=== PATIENT | male | born 1955 | race Caucasian/White ===

== ENCOUNTER 2017-09-14 20:44 | Observation (INO) | payer OTHER ==
--- NOTE | 2017-09-14 20:56 | PDOC ---
Rapid Medical Evaluation Chief Complaint: Blood Sugar Problem Time Seen by Provider: 09/14/17 20:50 Medical Evaluation: Allergies Allergy/AdvReac Type Severity Reaction Status Date / Time No Known Allergies Allergy Verified 10/06/14 14:25 "i was working outside and my sugar dropped. " patient report that he ate a lollipop now feels weak and lightheaded. O: patient alert ox3 CN intact, breath sounds clear. A: blood sugar problem P: cbc, cmp, cardiac , ekg, finger stick blood sugar. Discharge Disposition - Referrals Referrals: Cleve Zhang MD [Primary Care Provider] - - Patient Instructions - Post Discharge Activity
[2017-09-14 21:02] VITALS: BMI 30.7
[2017-09-14] MEDS ORDERED: ONDANSETRON 4 MG/2 ML VIAL IVPUSH STA (21:41)
--- NOTE | 2017-09-14 21:41 | PDOC ---
History of Present Illness - General History Source: Patient Exam Limitations: No Limitations - History of Present Illness Initial Comments: 09/14/17 22:38 The patient is a 62 year old male, with a significant past medical history of diabetes, who presents to the emergency department with, weakness, dizziness, and generalized chest discomfort. As per patient, he woke up at 11am when his symptoms onset. He reports that he felt as if his blood sugar was low. He reports that his symptoms continued despite his blood glucose reading stabilizing. He denies any recent fevers or chills. He denies any recent vomit, diarrhea or constipation. He denies any recent shortness of breath. He denies any recent dysuria, frequency, urgency or hematuria. Allergies: NKA Past surgical history: None reported. Social History: Nonsmoker. Denies EtOH use and recreational drug use. Primary Care Physician: Dr. Zhang <Veronica Neumann - Last Filed: 09/14/17 23:07> - General History Source: Patient <Chris Membreno - Last Filed: 09/19/17 19:36> - General Chief Complaint: Blood Sugar Problem Stated Complaint: DIZZINESS,WEAKNESS Time Seen by Provider: 09/14/17 20:50 Past History <Veronica Neumann - Last Filed: 09/14/17 23:07> - Past Medical History COPD: No Diabetes: Yes HTN: Yes Hypercholesterolemia: Yes Kidney Stones: Yes - Immunization History Immunization Up to Date: Yes - Suicide/Smoking/Psychosocial Hx Smoking Status: No Smoking History: Never smoked Have you smoked in the past 12 months: No Number of Cigarettes Smoked Daily: 0 Information on smoking cessation initiated: No Hx Alcohol Use: Yes Drug/Substance Use Hx: No Substance Use Type: Alcohol Hx Substance Use Treatment: No <Chris Membreno - Last Filed: 09/19/17 19:36> - Past Medical History Allergies/Adverse Reactions: Allergies Allergy/AdvReac Type Severity Reaction Status Date / Time No Known Allergies Allergy Verified 10/06/14 14:25 Home Medications: Ambulatory Orders Aspirin 81 mg PO DAILY 09/14/17 Review of Systems - Review of Systems Able to Perform ROS?: Yes Comments:: 09/14/17 22:38 CONSTITUTIONAL: Present: Weakness Absent: fever, no chills EYES: Absent: visual changes ENT: Absent: ear pain, no sore throat CARDIOVASCULAR: Present: Chest discomfort. Absent: no palpitations RESPIRATORY: Absent: cough, no SOB GI: Present: Nausea Absent: abdominal pain, no vomiting, no constipation, no diarrhea GENITOURINARY: Absent: dysuria, no frequency, no hematuria MUSKULOSKELETAL: Absent: back pain, no arthralgia, no myalgia SKIN: Absent: rash NEURO: Present: Dizziness Absent: headache <Veronica Neumann - Last Filed: 09/14/17 23:07> *Physical Exam - Vital Signs Last Vital Signs Temp Pulse Resp BP Pulse Ox 97.9 F 74 18 111/62 100 09/14/17 20:53 09/14/17 20:53 09/14/17 20:53 09/14/17 20:53 09/14/17 20:53 - Physical Exam Comments: 09/14/17 22:40 GENERAL: Well-appearing, well-nourished. No apparent distress. HEENT: Normocephalic, atraumatic. PERRL, EOM intact. CARDIOVASCULAR: Normal S1, S2. Regular rate and rhythm. PULMONARY: Clear to auscultation bilaterally. ABDOMEN: Soft, non-distended, non-tender. EXTREMITIES: Normal ROM in all four extremities. No gross deformities. SKIN: Warm, dry. No rash NEUROLOGICAL: No focal neurological deficits. <Veronica Neumann - Last Filed: 09/14/17 23:07> - Vital Signs Last Vital Signs Temp Pulse Resp BP Pulse Ox 97.9 F 74 18 111/62 100 09/14/17 20:53 09/14/17 20:53 09/14/17 20:53 09/14/17 20:53 09/14/17 20:53 <Chris Membreno - Last Filed: 09/19/17 19:36> ED Treatment Course - LABORATORY CBC & Chemistry Diagram: 09/14/17 21:33 09/14/17 21:33 - ADDITIONAL ORDERS Additional order review: Laboratory Results 09/14/17 09/14/17 09/14/17 21:33 21:33 21:33 PT with INR 11.50 INR 1.02 PTT (Actin FS) 25.1 L Sodium 134 L Potassium 5.7 H Chloride 105 Carbon Dioxide 21 D Anion Gap 8 BUN 38 H D Creatinine 2.5 H D Creat Clearance w eGFR 26.13 Random Glucose 133 H D Calcium 9.4 Total Bilirubin 0.8 D AST 12 L ALT 30 Alkaline Phosphatase 90 Creatine Kinase 182 Troponin I < 0.02 Total Protein 7.9 Albumin 4.3 D 09/14/17 21:33 RBC 4.65 MCV 93.9 MCHC 33.7 RDW 13.7 MPV 8.3 Neutrophils % 76.3 Lymphocytes % 15.3 Monocytes % 8.1 Eosinophils % 0.1 Basophils % 0.2 - Medications Given in the ED: ED Medications Discontinued Medications Generic Name Dose Route Start Last Admin Trade Name Freq PRN Reason Stop Dose Admin Ondansetron HCl 4 mg 09/14/17 21:41 09/14/17 22:14 Zofran Injection IVPUSH 09/14/17 21:42 4 mg ONCE STA Administration <Veronica Neumann - Last Filed: 09/14/17 23:07> - LABORATORY CBC & Chemistry Diagram: 09/15/17 05:40 09/16/17 05:00 <Chris Membreno - Last Filed: 09/19/17 19:36> Medical Decision Making - Medical Decision Making 09/14/17 23:07 EKG performed at: 14 Sep 2017 at 21:32:51 Vent Rate 60 bpm OR interval 148 ms QRS duration 94 ms QT/QTc 398/398 ms P-R-T axes 28 -19 21 Normal sinus rhythm. Moderate voltage criteria for LVH, may be normal variant Borderline ECG When compared with ECG 06-Oct-2014 17:31, No significant change was found. <Veronica Neumann - Last Filed: 09/14/17 23:07> - Medical Decision Making 09/19/17 19:36 Dr. Membreno: The scribe's documentation has been prepared under my direction and personally reviewed by me in its entirery. I confirm that the note above accurately reflects all work, treatment, procedures, and medical decision making performed by me. <Chris Membreno - Last Filed: 09/19/17 19:36> *DC/Admit/Observation/Transfer - Attestations Scribe Attestion: 09/14/17 22:41 Documentation prepared by Veronica Neumann, acting as director global medical affairs for Chris Membreno DO. <Veronica Neumann - Last Filed: 09/14/17 23:07> - Discharge Dispostion Decision to Admit order: Yes <Chris Membreno - Last Filed: 09/19/17 19:36> Diagnosis at time of Disposition: Hyperkalemia, LUZ MARIA (acute kidney injury) - Discharge Dispostion Disposition: HOME Condition at time of disposition: Improved
[2017-09-14 21:45] LABS: BASO % 0.2 % (0-2.0); EOS % 0.1 % (0-4.5); HEMATOCRIT 43.7 % (35.4-49); HEMOGLOBIN 14.7 GM/dL (11.7-16.9); LYMPH % 15.3 % (8-40); MCH 31.6 pg (25.7-33.7); MCHC 33.7 g/dl (32.0-35.9); MEAN CELL VOLUME 93.9 fl (80-96); MEAN PLT VOLUME 8.3 fl (7.5-11.1); MONO % 8.1 % (3.8-10.2); NEUT % 76.3 % (42.8-82.8); PLATELET COUNT 257 K/MM3 (134-434); RBC 4.65 M/mm3 (4.00-5.60); RDW 13.7 % (11.9-15.9)
[2017-09-14 21:58] LABS: INR 1.02 (0.82-1.09); PROTHROMBIN TIME (PATIENT) 11.5 SEC (9.7-13.0)
[2017-09-14] MEDS ORDERED: ONDANSETRON 4 MG/2 ML VIAL ONE (21:58)
[2017-09-14 22:01] LABS: ACTIVATED PTT 25.1 SECONDS (26.9-34.4)
[2017-09-14 22:11] LABS: URINE APPEARANCE CLEAR; URINE BILIRUBIN NEGATIVE (<2.0 mg/dL); URINE COLOR YELLOW; URINE GLUCOSE (UA) NEGATIVE (NEGATIVE); URINE KETONE NEGATIVE (NEGATIVE); URINE LEUK ESTERASE NEGATIVE (NEGATIVE); URINE NITRITE NEGATIVE (NEGATIVE); URINE PROTEIN NEGATIVE (NEGATIVE); URINE UROBILINOGEN NEGATIVE mg/dL (0.2-1.0)
[2017-09-14 22:15] LABS: ALBUMIN 4.3 g/dl (3.4-5.0); ANION GAP 8 (8-16); BILIRUBIN,TOTAL 0.8 mg/dL (0.2-1.0); BLOOD UREA NITROGEN 38 mg/dL (7-18); CALCIUM 9.4 mg/dL (8.5-10.1); CHLORIDE 105 mmol/L (98-107); CO2 21 mmol/L (21-32); CREATININE 2.5 mg/dL (0.7-1.3); GLUCOSE,RANDOM 133 mg/dL (74-106); POTASSIUM 5.7 mmol/L (3.5-5.1); SGOT/AST 12 U/L (15-37); SGPT/ALT 30 U/L (12-78); SODIUM 134 mmol/L (136-145); TOT PROT 7.9 g/dl (6.4-8.2)
[2017-09-14 22:16] LABS: ALK PHOS 90 U/L (45-117)
[2017-09-14] MEDS ORDERED: SODIUM CHLORIDE 1,000 ML IV STA (23:08)
[2017-09-14] MEDS ORDERED: CALCIUM GLUCONATE 10% - 1,000 MG/10 ML VIAL IVPB ONE (23:10)
[2017-09-14] MEDS ORDERED: SODIUM BICARBONATE 8.4% 50 MEQ/50 ML DISP.SYRIN IVPUSH ONE (23:10)
[2017-09-14] MEDS ORDERED: INSULIN REGULAR HUMAN 100 UNITS/ML *VIAL IVPUSH ONE (23:11)
[2017-09-14] MEDS ORDERED: DEXTROSE 50%-WATER - 25 GM/50 ML VIAL IVPUSH ONE (23:11)
[2017-09-14] MEDS ORDERED: CALCIUM GLUCONATE 10% - 1,000 MG/10 ML VIAL ONE (23:48)
[2017-09-14] MEDS ORDERED: DEXTROSE 50%-WATER 25 GM/50 ML DISP.SYRIN ONE (23:49)
[2017-09-14] MEDS ORDERED: SODIUM BICARBONATE 8.4% 50 MEQ/50 ML VIAL ONE (23:50)
[2017-09-14] MEDS ORDERED: INSULIN REGULAR HUMAN 100 UNITS/ML *VIAL ONE (23:50)
[2017-09-15] MEDS ORDERED: INSULIN REGULAR HUMAN 100 UNITS/ML *VIAL ONE (00:48)
[2017-09-15] MEDS: SODIUM CHLORIDE 1,000 ML IV SCH (01:00)
--- NOTE | 2017-09-15 01:21 | HP ---
CHIEF COMPLAINT: Weakness PCP: Dr Zhang HISTORY OF PRESENT ILLNESS: 62yo Hebrew speaking M with PMHx of NIDDM who presented to the ER w/ weakness. He was at his job, doing heavy lifting, and felt weakness, dizziness, and nausea. He presumed his blood sugar was low, so he ate, but his symptoms continued. Was given 1L bolus in ER, is now much improved. States BGMs have been controlled, but does endorse nocturia. Denies taking new medication, NSAIDs. Has mild BPH symptoms such as frequency and urgency. In the ER he was hemodynamically stable. Found to have an elevated Cr with high K. Given cocktail. Recent Travel: Denies PAST MEDICAL HISTORY: Diabetes PAST SURGICAL HISTORY: Non reported Social History: Nonsmoker. Denies EtOH use and recreational drug use. Allergies: No Known Allergies Allergy (Verified 10/06/14 14:25) HOME MEDICATIONS: Home Medications Medication Instructions Recorded Aspirin 81 mg PO DAILY 09/14/17 Enalapril Maleate [Vasotec] 20 mg PO DAILY 09/14/17 Metformin HCl 200 mg PO DAILY 09/14/17 Sitagliptin Phosphate [Januvia] 100 mg PO DAILY 09/14/17 REVIEW OF SYSTEMS CONSTITUTIONAL: Absent: fever, chills, diaphoresis, generalized weakness, malaise, loss of appetite, weight change HEENT: Absent: rhinorrhea, nasal congestion, throat pain, throat swelling, difficulty swallowing, mouth swelling, ear pain, eye pain, visual changes CARDIOVASCULAR: Absent: chest pain, syncope, palpitations, irregular heart rate , lightheadedness, peripheral edema RESPIRATORY: Absent: cough, shortness of breath, dyspnea with exertion, orthopnea, wheezing, stridor, hemoptysis GASTROINTESTINAL:Absent: abdominal pain, abdominal distension, nausea, vomiting , diarrhea, constipation, melena, hematochezia GENITOURINARY: Absent: dysuria, frequency, urgency, hesitancy, hematuria, flank pain, genital pain MUSCULOSKELETAL: Absent: myalgia, arthralgia, joint swelling, back pain, neck pain SKIN:Absent: rash, itching, pallor HEMATOLOGIC/IMMUNOLOGIC: Absent: easy bleeding, easy bruising, lymphadenopathy, frequent infections ENDOCRINE:Absent: unexplained weight gain, unexplained weight loss, heat intolerance, cold intolerance NEUROLOGIC: Absent: headache, focal weakness or paresthesias, dizziness, unsteady gait, seizure, mental status changes, bladder or bowel incontinence PSYCHIATRIC: Absent: anxiety, depression, suicidal or homicidal ideation, hallucinations. PHYSICAL EXAMINATION Vital Signs Period Temp Pulse Resp BP Sys/[place] Pulse Ox Last 24 Hr 97.9 F 74 18 111/62 100 GEN: AAOx3, NAD, Lying down comfortably HEENT: PERRLA, EOmi, no JVD CV: S1, S2, RRR LUNG: CTABL ABD: Soft, NT, ND, no flank tenderness MSK: No edema, no erythema NEURO: CN 2-12 intact, no sensation or msk deficits Active Medications Sodium Chloride (Normal Saline -) 1,000 mls @ 125 mls/hr IV ASDIR MANNY Insulin Aspart (Novolog Vial Sliding Scale -) 1 vial SQ ACHS MANNY PRN Reason: Protocol ASSESSMENT/PLAN: 62yo M with PMHx of NIDDM who presented to the ER w/ weakness, found to have elevated Cr and K # Weakness -- Could be from dehydration and not keeping up w. PO hydration. Improved w/ fluids in ER # Hyperkalemia -- Could be from LUZ MARIA. Given cocktail in ER. No EKG changes. Monitor in AM # Elevated Cr -- LUZ MARIA vs progressive diabetic nephropathy. Last Cr was in 2014. If acute, could be prerenal as stated above. Will obtain Ulytes. Renal sono to r/o other abnormalities. IVF. Hold ACEi. Pt also takes some NSAIDs intermittently. Obtain Ueosinophils to check for AIN. # NIDDM -- Hold januvia and metformin. Continue ISS. BGMs ACHS. Diabetic diet. A1C in am # Preventative -- Continue ASA daily # FEN/Ppx -- IVF 125cc/hr, diabetic diet, SCDs # Dispo -- Observation Case d/w Dr Barnhart & Dr Luke Pool MD - pGY1 Night Cr[facility]cher Visit type - Emergency Visit Emergency Visit: Yes ED Registration Date: 09/14/17 Care time: The patient presented to the Emergency Department on the above date and was hospitalized for further evaluation of their emergent condition. - New Patient This patient is new to me today: Yes Date on this admission: 09/15/17 - Critical Care Critical Care patient: No Hospitalist Screening - Colonoscopy Questionnaire Colonoscopy Questionnaire: Colonoscopy Questionnaire - Patient: 50 - 75 years old and never had a screening colonoscopy: Unknown History of colon or rectal polyps, or CA: Unknown History of IBD, Crohn's disease or UC: Unknown History of abdominal radiation therapy as a child: Unknown - Relative: 1 with colon or rectal CA, or polyps at age 60 or younger: Unknown Colon or rectal CA diagnosed at age 45 or younger: Unknown Multiple relatives with colon or rectal CA: Unknown - Outcome: Screening Result: Negative Screen
--- NOTE | 2017-09-15 02:30 | PN ---
Teaching Attending Note Name of Resident: Cynthia Pool ATTENDING PHYSICIAN STATEMENT I saw and evaluated the patient. Chart, data reviewed. I reviewed the resident's note and discussed the case with the resident. I agree with the resident's findings and plan as documented. SUBJECTIVE: 62yo man with controlled DM and HTN came to ER after he was feeling nauseous and fatigued on 53 when he was at work. Pt though he may have had hypoglycemia but did not check his glucose at that time and in the ER it was normal. Patient denied taking NSAIDS aside from his daily aspirin. He has no known baseline kidney disease that he can recall. He had kidney stone procedure in his right kidney about 5 years ago - lithotripsy? OBJECTIVE: Last Vital Signs Temp Pulse Resp BP Pulse Ox 97.9 F 74 18 111/62 100 09/14/17 20:53 09/14/17 20:53 09/14/17 20:53 09/14/17 20:53 09/14/17 20:53 General -NAD, AAox3, HEENT- at, nc, dry oral mucosa Neck -supple CV -s1+s2+ RRR Chest- cta b/l abdomen - soft, nontender, BS+ Skin -dry Abnormal Lab Results 09/14/17 09/14/17 21:33 21:33 PTT (Actin FS) 25.1 L Sodium 134 L Potassium 5.7 H BUN 38 H D Creatinine 2.5 H D Random Glucose 133 H D AST 12 L ekg- nsr, T waves appear unchanged from old ekg in 2014 ASSESSMENT AND PLAN: #62yo man with LUZ MARIA vs CKD. No baseline cr since 2015. Uncertain etiology of luz maria but may be prerenal azotemia from dehydration. R/o BPH, kidney stones. Assess for hydronephrosis. -observation -urine lytes, cr, osm -serum osm -urine eos -i/o, daily weights -renal, prostate U/S -avoid nephrotoxic meds -IV fluid hydration -trend bmp #Hyperkalemia-likely 2/2 luz maria, no new EKG changes -received [place], insulin and D50, calcium gluconate #Diabetes mellitus -insulin sliding scale -send a1c -diabetic diet #DVT ppx -heparin sc
[2017-09-15 06:08] LABS: HEMATOCRIT 42.1 % (35.4-49); HEMOGLOBIN 14.2 GM/dL (11.7-16.9); MCH 31.9 pg (25.7-33.7); MCHC 33.8 g/dl (32.0-35.9); MEAN CELL VOLUME 94.5 fl (80-96); MEAN PLT VOLUME 8.2 fl (7.5-11.1); PLATELET COUNT 216 K/MM3 (134-434); RBC 4.46 M/mm3 (4.00-5.60); RDW 13.7 % (11.9-15.9); WHITE BLOOD COUNT 5.6 K/mm3 (4.0-10.0)
[2017-09-15 06:33] LABS: ALBUMIN 3.7 g/dl (3.4-5.0); ALK PHOS 75 U/L (45-117); ANION GAP 6 (8-16); BLOOD UREA NITROGEN 32 mg/dL (7-18); CALCIUM 8.4 mg/dL (8.5-10.1); CHLORIDE 108 mmol/L (98-107); CO2 25 mmol/L (21-32); CREATININE 1.5 mg/dL (0.7-1.3); GLUCOSE,RANDOM 106 mg/dL (74-106); MAGNESIUM 2.4 mg/dL (1.8-2.4); PHOSPHOROUS 4.8 mg/dL (2.5-4.9); POTASSIUM 4.4 mmol/L (3.5-5.1); SGOT/AST 10 U/L (15-37); SGPT/ALT 25 U/L (12-78); SODIUM 139 mmol/L (136-145); TOT PROT 6.8 g/dl (6.4-8.2)
[2017-09-15] MEDS: ASPIRIN 81 MG CHEWABLE TABLETS PO SCH (09:20)
--- NOTE | 2017-09-15 09:33 | EKG ---
Test Reason : Blood Pressure : / mmHG Vent. Rate : 060 BPM Atrial Rate : 060 BPM P-R Int : 148 ms QRS Dur : 094 ms QT Int : 398 ms P-R-T Axes : 028 -19 021 degrees QTc Int : 398 ms NORMAL SINUS RHYTHM MODERATE VOLTAGE CRITERIA FOR LVH, MAY BE NORMAL VARIANT WHEN COMPARED WITH ECG OF 06-OCT-2014 17:31, NO SIGNIFICANT CHANGE WAS FOUND Confirmed by JASON HARRIS MD ([id number]) on 09/15/2017 9:32:45 AM Referred By: Confirmed By:JASON HARRIS MD
--- NOTE | 2017-09-15 10:15 | PN ---
Progress Note, Physician Chief Complaint: patient admitted with weakness foudn to have hyperkalemia and elevated bun/cr got ivf in ER renal/ bladder sono done - Current Medication List Current Medications: Active Medications Aspirin (Asa -) 81 mg PO DAILY [facility] Last Admin: 09/15/17 09:20 Dose: 81 mg Sodium Chloride (Normal Saline -) 1,000 mls @ 125 mls/hr IV ASDIR [facility] Last Admin: 09/15/17 01:00 Dose: 125 mls/hr Insulin Aspart (Novolog Vial Sliding Scale -) 1 vial SQ ACHS [facility] PRN Reason: Protocol - Objective Vital Signs: Vital Signs Temperature 98.2 F 09/15/17 06:52 Pulse Rate 56 L 09/15/17 06:52 Respiratory Rate 18 09/15/17 06:52 Blood Pressure 119/75 09/15/17 06:52 O2 Sat by Pulse Oximetry (%) 98 09/15/17 06:52 Constitutional: Yes: Calm Neck: Yes: Trachea Midline Cardiovascular: Yes: Regular Rate and Rhythm, S1, S2 Respiratory: Yes: CTA Bilaterally Gastrointestinal: Yes: Normal Bowel Sounds, Soft Edema: No Neurological: Yes: Alert, Oriented Labs: CBC, BMP 09/15/17 05:40 09/15/17 05:40 INR, PTT INR 1.02 (0.82-1.09) 09/14/17 21:33 Problem List - Problems (1) LUZ MARIA (acute kidney injury) Assessment/Plan: improved with IVF renal sono normal creatinine improved from 2.5 to 1.5 ACEI on hold Code(s): N17.9 - ACUTE KIDNEY FAILURE, UNSPECIFIED (2) Hyperkalemia Assessment/Plan: s/p cocktail now normal can dc telemtry Code(s): E87.5 - HYPERKALEMIA (3) Diabetes Assessment/Plan: hold oral hypolycemic given elevated creatinine hgba1c 7.3 on sliding scale Code(s): E11.9 - TYPE 2 DIABETES MELLITUS WITHOUT COMPLICATIONS Qualifiers: Diabetes mellitus type: type 2 Assessment/Plan PT eval continue ivf for another day dc telemtry transfer to med surg observation status dc planning tmw once bun/cr further decrease
[2017-09-15] MEDS: INSULIN SLIDING SCALE (NOVOLOG) 1 VIAL SQ SCH ×3 (13:31→21:52)
[2017-09-16] MEDS: SODIUM CHLORIDE 1,000 ML IV SCH (01:00)
[2017-09-16] MEDS: INSULIN SLIDING SCALE (NOVOLOG) 1 VIAL SQ SCH ×3 (06:25→11:26)
[2017-09-16 07:42] LABS: ALBUMIN 3.4 g/dl (3.4-5.0); ANION GAP 8 (8-16); BLOOD UREA NITROGEN 20 mg/dL (7-18); CALCIUM 8.5 mg/dL (8.5-10.1); CHLORIDE 108 mmol/L (98-107); CO2 24 mmol/L (21-32); GLUCOSE,RANDOM 109 mg/dL (74-106); POTASSIUM 5.1 mmol/L (3.5-5.1); SODIUM 140 mmol/L (136-145)
[2017-09-16 07:46] LABS: ALK PHOS 70 U/L (45-117); BILIRUBIN,TOTAL 0.7 mg/dL (0.2-1.0); SGOT/AST 9 U/L (15-37); SGPT/ALT 22 U/L (12-78); TOT PROT 6.3 g/dl (6.4-8.2)
[2017-09-16 08:35] VITALS: BP 131/84; PULSE 49; TEMP 98
[2017-09-16] MEDS: ASPIRIN 81 MG CHEWABLE TABLETS PO SCH (09:27)
--- NOTE | 2017-09-16 11:14 | DS ---
Physical Examination Vital Signs: Vital Signs Temperature 98.0 F 09/16/17 08:32 Pulse Rate 49 L 09/16/17 08:32 Respiratory Rate 16 09/16/17 08:32 Blood Pressure 131/84 09/16/17 08:32 O2 Sat by Pulse Oximetry (%) 99 09/16/17 04:00 Findings/Remarks: 62yo Luxembourgish speaking M with PMHx of NIDDM who presented to the ER w/ weakness. He was at his job, doing heavy lifting, and felt weakness, dizziness, and nausea. He presumed his blood sugar was low, so he ate, but his symptoms continued. Was given 1L bolus in ER, is now much improved. States BGMs have been controlled, but does endorse nocturia. Denies taking new medication, NSAIDs. Has mild BPH symptoms such as frequency and urgency. Cardiovascular: Yes: Regular Rate and Rhythm Respiratory: Yes: Regular, CTA Bilaterally Gastrointestinal: Yes: Normal Bowel Sounds, Soft Labs: CBC, BMP 09/15/17 05:40 09/16/17 05:00 Discharge Summary Reason For Visit: HYPERKALEMIA ACUTE KIDNEY INJURY Current Active Problems LUZ MARIA (acute kidney injury) (Acute) Diabetes (Acute) Hyperkalemia (Acute) Hospital Course: - Problems (1) LUZ MARIA (acute kidney injury) Assessment/Plan: improved with IVF--eill dc renal sono normal creatinine improved from 2.5 to 1.5-1 ACEI on hold Code(s): N17.9 - ACUTE KIDNEY FAILURE, UNSPECIFIED (2) Hyperkalemia Assessment/Plan: s/p cocktail now normal can dc telemtry Code(s): E87.5 - HYPERKALEMIA (3) Diabetes Assessment/Plan: hold oral hypolycemic given elevated creatinine hgba1c 7.3 on sliding scale evaluate meds as outpatient Code(s): E11.9 - TYPE 2 DIABETES MELLITUS WITHOUT COMPLICATIONS Qualifiers: Diabetes mellitus type: type 2 Condition: Improved - Instructions Diet, Activity, Other Instructions: stay off medications follow up with dr zhang on Monday Referrals: Cleve Zhang MD [Primary Care Provider] - 09/18/17 Disposition: HOME - Home Medications Comprehensive Discharge Medication List: Ambulatory Orders Aspirin 81 mg PO DAILY 09/14/17
== END 2017-09-16 12:56 | disposition home or self-care (01) ==
LOC: JER 20:44 → JERBED 23:58 → J4W 09-15 08:01
PROVIDERS: ADMIT Internal Medicine; ATTEND Family Medicine
PROC: 3E033VG Introduction of Insulin into Peripheral Vein, Percutaneous Approach (ICD-10-PCS; principal; 2017-09-14)
PROC: 3E033GC Introduction of Other Therapeutic Substance into Peripheral Vein, Percutaneous Approach (ICD-10-PCS; 2017-09-14)
PROC: 3E0337Z Introduction of Electrolytic and Water Balance Substance into Peripheral Vein, Percutaneous Approach (ICD-10-PCS; 2017-09-14)
DX: E87.5 Hyperkalemia (principal); N17.9 Acute kidney failure, unspecified; R79.89 Other specified abnormal findings of blood chemistry; I10 Essential (primary) hypertension; E11.9 Type 2 diabetes mellitus without complications; E78.5 Hyperlipidemia, unspecified; R53.1 Weakness; Z87.442 Personal history of urinary calculi; Z79.82 Long term (current) use of aspirin; Z79.84 Long term (current) use of oral hypoglycemic drugs
CPT/HCPCS: 36415; 76775-TC; 76856-TC; 80053; 81003; 82436; 82550; 82553; 82570; 82962; 83036; 83735; 84100; 84133; 84300; 84484; 85025; 85027; 85610; 85730; 87205; 93005; 93010; 96361; 96374; 96375; 97116-GP; 97161-GP; 99285-25; G0378; J7030

== ENCOUNTER 2018-08-31 22:09 | Emergency (ER) | payer OTHER ==
[2018-08-31 22:28] VITALS: BP 129/68; PULSE 73; TEMP 98.1; BMI 29.9
--- NOTE | 2018-08-31 23:19 | PDOC ---
History of Present Illness - General Chief Complaint: Pain, Acute Stated Complaint: RIGHT/ARM PAIN Time Seen by Provider: 08/31/18 23:00 History Source: Patient Exam Limitations: No Limitations - History of Present Illness Initial Comments: 08/31/18 23:22 HISTORY OF PRESENT ILLNESS: This 63-year-old male past medical history of NIDDM presents emergency department for evaluation of atraumatic right wrist pain. Patient reports his of the pain for the past 2 days but denies striking it or falling down. Describes the pain as a sharp sensation which is localized to his right wrist. He denies any pain or loss of sensation in his hand. No recent travel or sick contacts. PAST MEDICAL HISTORY: see HPI SURGICAL HISTORY: Denies ALLERGIES: No known drug allergies REVIEW OF SYSTEMS General/Constitutional: Denies fever or chills. Denies weakness, weight change. HEENT: Denies change in vision. Denies ear pain or discharge. Denies sore throat. Cardiovascular: Denies chest pain or shortness of breath. Respiratory: Denies cough, wheezing, or hemoptysis. Gastrointestinal: Denies nausea, vomiting, diarrhea or constipation. Denies rectal bleeding. Genitourinary: Denies dysuria, frequency, or change in urination. Musculoskeletal: see HPI Skin and breasts: Denies rash or easy bruising. Neurologic: Denies headache, vertigo, loss of consciousness, or loss of sensation. Psychiatric: Denies depression or anxiety. Endocrine: Denies increased thirst. Denies abnormal weight change. Hematologic/Lymphatic: Denies anemia, easy bleeding, or history of blood clots. Allergic/Immunologic: Denies hives or skin allergy. Denies latex allergy. PHYSICAL EXAM General Appearance: Well-appearing, appropriately dressed. No apparent distress , no intoxication. HEENT: EOMI, PERRLA, normal ENT inspection, normal voice, TMs normal, pharynx normal. No conjunctival pallor. No photophobia, scleral icterus. Neck: Supple. Trachea midline. No tenderness, rigidity, carotid bruit, stridor , lymphadenopathy, or thyromegaly. Respiratory/Chest: Lungs CTAB. No shortness of breath, chest tenderness, respiratory distress, accessory muscle use. No crackles, rales, rhonchi, stridor , wheezing, dullness Cardiovascular: RRR. S1, S2. No JVD, murmur, bradycardia, tachycardia. Vascular Pulses: Dorsalis-Pedis (R): 2+, Dorsalis-Pedis (L): 2+ Gastrointestinal/Abdominal: Normal bowel sounds. Abdomen soft, non-distended. No tenderness or rebound tenderness. No organomegaly, pulsatile mass, guarding, hernia, hepatomegaly, splenomegaly. Lymphatic: No adenopathy, tenderness. Musculoskeletal/Extremities: Normal inspection. FPROM of all extremities, normal capillary refill. Active range of motion with pronation and supination of the right wrist decreased secondary to pain. Able to flex and extend wrist against resistance without difficulty. Pelvis Stable. No CVA tenderness. Tender to palpation over the dorsum of the right wrist medially. 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 Integumentary: Appropriate color, dry, warm. No cyanosis, erythema, jaundice or rash Neurologic: foster care worker II-XII intact. Fully oriented, alert. Appropriate mood/affect. Motor strength 5/5. No appreciable EOM palsy, facial droop or sensory deficit. Past History - Past Medical History Allergies/Adverse Reactions: Allergies Allergy/AdvReac Type Severity Reaction Status Date / Time No Known Allergies Allergy Verified 08/31/18 23:28 Home Medications: Ambulatory Orders Aspirin 81 mg PO DAILY 09/14/17 Insulin Glargine,Hum.rec.anlog [Basaglar Kwikpen U-100] 15 unit SQ HS 08/31/18 Sitagliptin Phosphate [Januvia] 100 mg PO HS 08/31/18 Anemia: No Asthma: No COPD: No Diabetes: Yes HTN: Yes Hypercholesterolemia: Yes Kidney Stones: Yes - Immunization History Immunization Up to Date: Yes - Suicide/Smoking/Psychosocial Hx Smoking Status: No Smoking History: Unknown if ever smoked Have you smoked in the past 12 months: No Number of Cigarettes Smoked Daily: 0 Information on smoking cessation initiated: No Hx Alcohol Use: No Drug/Substance Use Hx: No Substance Use Type: Alcohol Hx Substance Use Treatment: No *Physical Exam - Vital Signs Last Vital Signs Temp Pulse Resp BP Pulse Ox 98.1 F 73 20 129/68 98 08/31/18 22:25 08/31/18 22:25 08/31/18 22:25 08/31/18 22:25 08/31/18 22:25 Medical Decision Making - Medical Decision Making 08/31/18 23:25 A/P: 63-year-old male with atraumatic right wrist pain. 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 Patient states has been this way since she was child. Full sensation present to right hand. No bony tenderness to palpation of the bones of the hand, wrist or elbow. Differential diagnosis includes but is not limited to pathologic fracture, neuropathy, sprain, carpal tunnel X-ray Tylenol Reassess 09/01/18 00:13 X-rays read by me: Arthritic changes present at lunate bone. I will discharge the patient home to follow-up with his primary doctor for continued evaluation. Patient instructed to take Tylenol as needed for pain. *DC/Admit/Observation/Transfer Diagnosis at time of Disposition: Arthritis - Discharge Dispostion Disposition: HOME Condition at time of disposition: Stable Decision to Admit order: No - Referrals Referrals: Cleve Zhang MD [Primary Care Provider] - - Patient Instructions Additional Instructions: Take Tylenol as directed by manufacturers instructions as needed for pain. Follow-up with her primary doctor for reevaluation. Return to emergency department for any new or worsening symptoms. - Post Discharge Activity
[2018-08-31] MEDS ORDERED: ACETAMINOPHEN 500 MG TABLET (FP) PO ONE (23:20)
[2018-08-31] MEDS ORDERED: ACETAMINOPHEN 325 MG TABLET (FP) ONE (23:34)
== END 2018-09-01 00:33 | disposition home or self-care (01) ==
LOC: JER 22:09
DX: M13.831 Other specified arthritis, right wrist (principal); E11.9 Type 2 diabetes mellitus without complications; Z79.4 Long term (current) use of insulin; Z79.84 Long term (current) use of oral hypoglycemic drugs; E78.00 Pure hypercholesterolemia, unspecified; I10 Essential (primary) hypertension; M20.011 Mallet finger of right finger(s)
CPT/HCPCS: 73110-TC-RT-FY; 73130-TC-RT-FY; 99281-25

== ENCOUNTER 2024-11-17 08:52 | Inpatient (IN) | payer OTHER ==
[2024-11-17 10:02] LABS: MCHC 32.7 g/dl (32.3-36.5); MEAN CELL VOLUME 91.2 fl (79.0-92.2); MEAN PLT VOLUME 9.7 fl (9.4-12.4); RDW 11.7 % (12.2-16.6)
[2024-11-17] MEDS ORDERED: PIPERACILLIN/TAZOB 4.5 GM 4.5 GM/100 ML BAG IVPB ONE (10:06)
[2024-11-17] MEDS: ACETAMINOPHEN 1000 MG/100 ML BAG IVPB ONE (10:06)
[2024-11-17] MEDS ORDERED: ACETAMINOPHEN INJECTION 100 ML ONE (10:06)
[2024-11-17] MEDS: PIPERACILLIN/TAZOB 4.5 GM 4.5 GM in DEXTROSE 5%-WATER 100 ML IVPB ONE (10:07)
[2024-11-17 10:09] LABS: INR 1.1 (0.83-1.09); PROTHROMBIN TIME (PATIENT) 12.0 SEC (9.7-13.0)
[2024-11-17 10:11] LABS: ACTIVATED PTT 25.9 SECONDS (25.2-36.5)
[2024-11-17 10:25] LABS: CO2 24 mmol/L (21-32)
[2024-11-17 10:27] LABS: CREATININE 1.4 mg/dL (0.55-1.3)
[2024-11-17 10:28] LABS: SGOT/AST 6 U/L (15-37); SGPT/ALT 18 U/L (13-61)
[2024-11-17 10:29] LABS: TOT PROT 6.2 g/dl (6.4-8.2)
[2024-11-17 10:30] LABS: ALK PHOS 137 U/L (45-117)
[2024-11-17 10:47] LABS: GLUCOSE,RANDOM 567 mg/dL (74-106)
[2024-11-17] MEDS: VANCOMYCIN PREMIX 1.75 GM 1,750 MG/350 ML PIGGYBACK IVPB ONE (10:47)
[2024-11-17 10:58] LABS: MONOCYTE # 0.51 x10^3/uL (0.30-0.82)
[2024-11-17] MEDS: SODIUM CHLORIDE 0.9% 500 ML INFUS.BAG IV ONE (10:58)
[2024-11-17 11:28] LABS: HCV DIAGNOSTIC IN-HOUSE W/RFLX NON-REACTIVE (NONREACTIVE)
[2024-11-17 11:30] LABS: HIV INTERPRETATION NEGATIVE (NEGATIVE)
[2024-11-17] MEDS: INSULIN ASPART SLIDING SCALE (NOVOLOG) 1 VIAL SQ SCH (16:52)
[2024-11-17] MEDS: ACETAMINOPHEN 1000 MG/100 ML BAG IVPB PRN (17:10)
[2024-11-17] MEDS: PIPERACILLIN/TAZOB 3.375 GM 3.375 GM in DEXTROSE 5%-WATER - 50 ML IVPB SCH (17:37)
[2024-11-17 18:11] VITALS: BMI 28.9
[2024-11-17] MEDS: INSULIN GLARGINE (LANTUS) 100 UNITS/ML UNITS SQ SCH (21:18)
[2024-11-17 21:42] VITALS: RESP 18
[2024-11-18 08:31] LABS: MCHC 32.0 g/dl (32.3-36.5); MEAN CELL VOLUME 91.8 fl (79.0-92.2); MEAN PLT VOLUME 9.7 fl (9.4-12.4); RDW 12.0 % (12.2-16.6)
[2024-11-18 09:41] LABS: CO2 26.0 mmol/L (21-32); GLUCOSE,RANDOM 181.0 mg/dL (74-106)
[2024-11-18 09:44] LABS: CREATININE 1.1 mg/dL (0.55-1.3); SGOT/AST 8.0 U/L (15-37); SGPT/ALT 16.0 U/L (13-61)
[2024-11-18 09:45] LABS: TOT PROT 5.8 g/dl (6.4-8.2)
[2024-11-18 09:50] LABS: ALK PHOS 96.0 U/L (45-117)
[2024-11-18] MEDS: ENOXAPARIN NA (PORCINE) 40 MG/0.4 ML DISP.SYRIN SQ SCH (10:10)
[2024-11-18] MEDS: ASPIRIN 81 MG CHEWABLE TABLETS PO SCH (10:11)
[2024-11-18] MEDS ORDERED: ONDANSETRON 4 MG/2 ML VIAL IVPUSH PRN ×3 (14:02→15:53)
[2024-11-18] MEDS ORDERED: LIDOCAINE HCL/PF 2% SDV 5ML VIAL ONE (14:04)
[2024-11-18] MEDS ORDERED: PROPOFOL 20 ML ONE (14:04)
[2024-11-18] MEDS ORDERED: MIDAZOLAM HCL 2 MG/2 ML SINGLE DOSE VIAL ONE (14:04)
[2024-11-18] MEDS ORDERED: ROCURONIUM BROMIDE 50 MG/5 ML SYRINGE ONE (14:30)
[2024-11-18] MEDS ORDERED: SUCCINYLCHOLINE CHLORIDE 200 MG/10 ML SYRINGE ONE (14:30)
[2024-11-18] MEDS ORDERED: MAG HYDROX/AL HYDROX/SIMETH 30 ML UNIT-DOSE CUP PO PRN (15:47)
[2024-11-18] MEDS: LACTATED RINGERS SOLUTION 1,000 ML IV SCH ×3 (16:40→19:38)
[2024-11-18] MEDS: INSULIN ASPART SLIDING SCALE (NOVOLOG) 1 VIAL SQ SCH (17:00)
[2024-11-18] MEDS: PIPERACILLIN/TAZOB 3.375 GM 3.375 GM in DEXTROSE 5%-WATER - 50 ML IVPB SCH ×2 (17:03→19:38)
[2024-11-18] MEDS ORDERED: PIPERACILLIN/TAZOB 3.375 GM 3.375 GM in DEXTROSE 5%-WATER - 50 ML IVPB SCH (18:00)
[2024-11-18] MEDS: VANCOMYCIN/WATER FOR INJ (PEG) 1,000 MG/200 ML BAG IVPB SCH (18:01)
[2024-11-18] MEDS: VANCOMYCIN 1,000 MG in DEXTROSE 5%-WATER - 250 ML IVPB SCH (19:38)
[2024-11-18] MEDS ORDERED: ACETAMINOPHEN INJECTION 100 ML ONE (21:20)
[2024-11-18] MEDS: ACETAMINOPHEN 1000 MG/100 ML BAG IVPB ONE (22:13)
[2024-11-18] MEDS: SENNOSIDES/DOCUSATE COMBO (SENNA PLUS) TABLET (UD) PO SCH (22:13)
[2024-11-18] MEDS: INSULIN GLARGINE (LANTUS) 100 UNITS/ML UNITS SQ SCH (22:49)
[2024-11-19 09:36] LABS: MCHC 31.8 g/dl (32.3-36.5); MEAN CELL VOLUME 91.7 fl (79.0-92.2); MEAN PLT VOLUME 9.6 fl (9.4-12.4); RDW 12.1 % (12.2-16.6)
[2024-11-19] MEDS: MULTIVITAMINS (DAILY MVI) TABLET (FP) PO SCH (10:23)
[2024-11-19] MEDS: PANTOPRAZOLE 40 MG TABLET PO SCH (10:23)
[2024-11-19] MEDS: ASPIRIN COATED 81 MG TABLET.EC PO SCH (10:23)
[2024-11-19 10:39] LABS: CO2 26.0 mmol/L (21-32); GLUCOSE,RANDOM 142.0 mg/dL (74-106)
[2024-11-19 10:42] LABS: CREATININE 1.0 mg/dL (0.55-1.3)
[2024-11-20 09:02] LABS: ABSOLUTE IMMATURE GRANULOCYTES 0.09 x10^3/uL (0.0-0.031); BASOPHILS # 0.02 x10^3/uL (0.01-0.08); EOSINOPHIL % 2.5 % (0.8-7.0); EOSINOPHILS # 0.24 x10^3/uL (0.04-0.54); MCHC 32.2 g/dl (32.3-36.5); MEAN CELL VOLUME 92.3 fl (79.0-92.2); MEAN PLT VOLUME 9.5 fl (9.4-12.4); MONOCYTE # 0.80 x10^3/uL (0.30-0.82); MONOCYTE % 8.3 % (5.3-12.2); RDW 12.2 % (12.2-16.6)
[2024-11-20 09:45] LABS: CO2 29.0 mmol/L (21-32); GLUCOSE,RANDOM 178.0 mg/dL (74-106)
[2024-11-20 09:48] LABS: ERYTHROCYTE SEDIMENTATION RATE 101 mm/hr (0-20)
[2024-11-20 09:49] LABS: CREATININE 0.9 mg/dL (0.55-1.3); SGOT/AST 10.0 U/L (15-37); SGPT/ALT 22.0 U/L (13-61)
[2024-11-20 09:50] LABS: TOT PROT 5.7 g/dl (6.4-8.2)
[2024-11-20 09:51] LABS: ALK PHOS 124.0 U/L (45-117)
[2024-11-20] MEDS ORDERED: BENZOCAINE/MENTH/CETYLPYRD CL 1 EACH LOZENGE MM PRN (09:53)
[2024-11-20] MEDS: POLYETHYLENE GLYCOL (HEALTHYLAX) 3350 17 GM PACKET PO SCH (10:24)
[2024-11-20] MEDS: ENOXAPARIN NA (PORCINE) 40 MG/0.4 ML DISP.SYRIN SQ SCH (10:24)
[2024-11-21] MEDS: INSULIN ASPART SLIDING SCALE (NOVOLOG) 1 VIAL SQ SCH (08:26)
[2024-11-21] MEDS: INSULIN GLARGINE (LANTUS) 100 UNITS/ML UNITS SQ SCH ×2 (08:26→22:24)
[2024-11-21 09:38] LABS: MCHC 32.5 g/dl (32.3-36.5); MEAN CELL VOLUME 92.3 fl (79.0-92.2); MEAN PLT VOLUME 9.5 fl (9.4-12.4); RDW 12.0 % (12.2-16.6)
[2024-11-21 12:14] LABS: ALK PHOS 116.0 U/L (45-117); CO2 28.0 mmol/L (21-32); CREATININE 0.9 mg/dL (0.55-1.3); GLUCOSE,RANDOM 169.0 mg/dL (74-106); SGOT/AST 15.0 U/L (15-37); SGPT/ALT 30.0 U/L (13-61); TOT PROT 5.6 g/dl (6.4-8.2)
[2024-11-21] MEDS: VANCOMYCIN/WATER 1250 MG 1,250 MG/250 ML BAG IVPB SCH (17:18)
[2024-11-22] MEDS ORDERED: morphine CARPU-JECT 2 MG/1 ML DISP.SYRIN IVPUSH PRN (11:00)
[2024-11-22 21:52] VITALS: BP 138/76; PULSE 65; TEMP 98.8
== END 2024-11-23 02:30 | DRG 486 ==
LOC: JER 08:52 → JERBED 11:47 → J6S 13:03
PROVIDERS: ADMIT Family Medicine; ATTEND Family Medicine
PROC: 0SBD0ZZ Excision of Left Knee Joint, Open Approach (ICD-10-PCS; principal; 2024-11-18 14:00)
PROC: 02HV33Z Insertion of Infusion Device into Superior Vena Cava, Percutaneous Approach (ICD-10-PCS; 2024-11-22)
PROC: B548ZZA Ultrasonography of Superior Vena Cava, Guidance (ICD-10-PCS; 2024-11-22)
DX: M71.162 Other infective bursitis, left knee (principal); E87.1 Hypo-osmolality and hyponatremia; L03.116 Cellulitis of left lower limb; I10 Essential (primary) hypertension; E78.5 Hyperlipidemia, unspecified; I25.10 Atherosclerotic heart disease of native coronary artery without angina pectoris; E11.65 Type 2 diabetes mellitus with hyperglycemia; E87.5 Hyperkalemia; E86.0 Dehydration
CPT/HCPCS: 36415; 36569; 73562-TC-LT-FY; 80048; 80053; 82962; 83036; 83605; 83735; 85025; 85027; 85610; 85651; 85730; 86140; 86803; 86850; 86900; 86901; 87040; 87070; 87075; 87205; 87389; 93005; 93010; 94760; 97116-GP; 97161-GP; 99285-25; G0480; J3373